=== PATIENT | female | born 1970 | race Caucasian/White ===

== ENCOUNTER 2017-12-16 17:43 | Emergency (ER) | payer BC ==
[~2017-12-16] VITALS: Ht 154.9 cm; Wt 61.2 kg
--- NOTE | 2017-12-16 18:39 | DIREP ---
PROCEDURE:XRAY WRIST MIN 3VW-LT COMPARISON:None. INDICATIONS:FALL FINDINGS: BONES:Comminuted transverse distal radial metaphysis seal fracture with extensions into the articular surface in at least 2 locations with minimal displacement. JOINTS:Normal. SOFT TISSUES:Normal. OTHER:No additional findings. CONCLUSION:Comminuted distal metaphyseal intra-articular radial fractures. Dictated by: Rebel Guevara M.D. on 12/16/2017 at 06:35 PM
--- NOTE | 2017-12-16 19:48 | ER.PDOC ---
General Chief Complaint: Extremities Stated Complaint: WRIST INJURY Time seen by MD: 19:45 Source: patient Exam Limitations: no limitations History of Present Illness Initial Comments Right wrist pain from falling this afternoon. She did not hit her head. Severity: moderate Context: Tripped Loss of Consciousness: No Loss of Consciousness Associated Symptoms: denies symptoms Allergies: Coded Allergies: Penicillins (Verified Allergy, Unknown, RASH, 12/16/17) Past Medical History Medical History: high cholesterol, thyroid disease Surgical History: tonsillectomy Social History Smoking: non-smoker Alcohol Use: none Drug Use: none Review of Systems Constitutional: no symptoms reported Respiratory: no symptoms reported Cardiovascular: no symptoms reported Gastrointestinal: no symptoms reported Musculoskeletal: see HPI All Other Systems: Reviewed and Negative Physical Exam General Appearance: No Apparent Distress, WD/WN Head: No Evidence of Injury Neck: Non-Tender, Normal Alignment, Nexus criteria neg, Normal Inspection Cardiovascular/Respiratory: Regular Rate, Rhythm, No M/R/G, Normal Peripheral Pulses, No JVD, Normal Breath Sounds, No Respiratory Distress Gastrointestinal: Normal Bowel Sounds, No Organomegaly, No Pulsatile Mass, Non Tender, Soft Back: Normal Inspection, No CVA Tenderness, No Vertebral Tenderness Extremities: Tenderness (left wrist with swelling) [place] Score Best Eye Response: (4) Open Spontaneously Best Verbal Response: (5) Oriented Best Motor Response: (6) Obeys Commands EKG/XRAY/CT/US XRAY Comments: Comminuted fracture distal left wrist Departure Time of Disposition: 19:46 Disposition: 01 HOME, SELF-CARE Impression: Primary Impression: Wrist fracture, left Qualified Codes: S62.102A - Fracture of unspecified carpal bone, left wrist, initial encounter for closed fracture Condition: Stable Referrals: PCP,UNKNOWN (PCP) PRIMARY CARE PROVIDER Additional Instructions: Ice Ibuprofen Tylenol #3 F/U with your Ortho in [place] Comments Patient given a copy of CD and report Duration or Time Spent with Pa: 60 mins JEN PHILLIPS MD Dec 16, 2017 19:48
[2017-12-16] MEDS ORDERED: TYLENOL #3 PO STA (19:49)
[2017-12-16] MEDS ORDERED: TYLENOL #3 PO ONE (19:53)
[2017-12-16 20:03] VITALS: BP 132/75
== END 2017-12-16 20:00 | disposition home or self-care (01) ==
LOC: ER 17:43
DX: S52.572A Other intraarticular fracture of lower end of left radius, initial encounter for closed fracture (principal); E07.9 Disorder of thyroid, unspecified; E78.00 Pure hypercholesterolemia, unspecified; Z88.0 Allergy status to penicillin; W01.0XXA Fall on same level from slipping, tripping and stumbling without subsequent striking against object, initial encounter; Y93.89 Activity, other specified; Y92.89 Other specified places as the place of occurrence of the external cause; Y99.8 Other external cause status
CPT/HCPCS: 73110; 99284; J3490